=== PATIENT | male | born 1970 | race Caucasian/White ===

== ENCOUNTER 2024-08-27 15:39 | Emergency (ER) | payer OTHER, SELFPAY ==
--- NOTE | 2024-08-27 15:49 | ED.LOWEXIN ---
HPI - Extremity Injury (Lower) General Chief Complaint: Extremity Injury, Lower Stated Complaint: right foot swollen Time Seen by Provider: 08/27/24 16:22 Source: patient and RN notes reviewed Mode of arrival: ambulatory Limitations: no limitations History of Present Illness HPI Narrative: 53-year-old male presents with concern for right ankle, foot swelling, redness, scabbing. Reports he was treated for cellulitis with 2 antibiotics which she just recently finished. [place] and [place] caregiver is only aware of 1 of the antibiotics needs which is cephalexin. She is unable to find name of the 2nd antibiotic. He reports the area improved with those antibiotics but did not resolve. Patient has a history of TBI and does not feel pain so he is unaware of when the area started swelling and cannot safe it is painful. He denies fever, chills, sweats MD complaint: other (foot swelling) Related Data Home Medications Medication Instructions Recorded Confirmed Last Taken Type Vraylar 08/27/24 Unknown History claritin 08/27/24 Unknown History fluoxetine 08/27/24 Unknown History Allergies Allergy/AdvReac Type Severity Reaction Status Date / Time No Known Allergies Allergy Verified 08/27/24 15:58 Review of Systems Review of Systems: CONSTITUTIONAL: Denies malaise, chills, sweats, or fever. CARDIOVASCULAR: Denies chest pain, palpitations, or edema. RESPIRATORY: Denies cough or dyspnea. SKIN: Denies rash or itching, bruising, redness MUSCULOSKELETAL: Reports swelling, redness, scabbing to the right lower leg and foot NEUROLOGIC: Denies numbness, weakness All systems reviewed & are unremarkable except as noted in HPI and below PMFSH Comments At time of signature, agree with nursing past medical, surgical, social and family history. There is no relevant family history pertinent to the presenting complaint Exam Narrative: GENERAL: Well-appearing, well-nourished, and in no acute distress. HEAD: Normocephalic, atraumatic. EYES: PERRLA, conjunctivae clear NECK: Supple. CHEST: Speaks in full sentences. No respiratory distress. HEART: Regular rate and rhythm. Normal and equal peripheral pulses. EXTREMITIES: Right lower extremity has normal strength and sensation, normal range of motion. Moderate edema to the lower leg with erythema and warmth to the ankle and foot. No ecchymosis. Normal sensation with sensitivity to light touch and pain. No point tenderness. No skin tenting, no atrophy, no trophic changes, no obvious deformity, alignment normal, nearby joints and structures intact. Distal pulses dopplerable bilaterally, skin warm, dry, pink. Capillary refill less than 3 seconds. Circumferential measurement of the right calf is 22.5, circumferential measurement of the left calf is 21 SKIN: Warm, dry, no rash. Scabbing noted to the dorsal foot and scattered on the anterior lower leg. NEURO: Alert and oriented x3. PSYCH: Normal mood and affect Course Course Emergency Course: Concern for blood clot, called several local hospitals none of which have Doppler ultrasound capability after 4:00 p.m.. Patient treated for cellulitis with clindamycin, they will present to emergency room tomorrow morning for evaluation of possible DVT. Patient is aware of, understands and agrees to treatment plan. Anticipatory guidance given. Patient agrees to follow-up as directed and is aware of reasons to seek care at the emergency department. Portions of this record may have been created with voice recognition software Level of Care: Express Care Visit Vital Signs Vital signs: Reviewed. MDM - Extremity Injury (Lower) MDM Narrative Medical decision making narrative: Patient is nontoxic appearing and in no acute distress Differential Diagnosis Differential diagnosis: Likely other (Cellulitis, DVT, stasis ulcer) Critical Care Time Critical Care Time Critical Care Time: No Discharge Plan Discharge Clinical Impression: Cellulitis Patient Disposition: Home Condition: Stable Instructions: Antibiotic Form, Cellulitis (ED) Additional Instructions: Please follow up in the emergency room in the morning for evaluation of a possible blood clot. Rest and elevate affected area. Take Motrin 600mg every 8 hours with food for pain. Please take Antibiotics as directed. If you experience any worsening redness, swelling, streaking (red lines), fever or chills please go to the ER right away Patient Language: Serbian Prescriptions: New clindamycin HCl 300 mg capsule 300 mg PO Q8H 7 Days Qty: 21 0RF No Action Vraylar fluoxetine claritin Follow-up/Referrals: UNKNOWN,DOCTOR [Primary Care Provider] - Time of Disposition: 16:34
[2024-08-27 15:54] VITALS: BP 122/64; PULSE 66; RESP 20; TEMP 36.5; O2SAT 98
== END 2024-08-27 16:43 | disposition home or self-care (01) ==
PROVIDERS: Emergency Provider Nurse Practitioner
DX: L03.115 Cellulitis of right lower limb (principal)
CPT/HCPCS: 99203; G0463